=== PATIENT | male | born 1990 | race Caucasian/White ===

== ENCOUNTER 2022-05-24 15:42 | Outpatient (CLI) | payer OTHER, SELFPAY ==
--- NOTE | 2022-05-24 14:30 | USCV_ITS ---
Brandon Rios Age: 31 Gender: M : 1990 Exam Date: 05/24/2022 15:57 Ordering Phys: Danielle Arnold Technologist: CT Exam Location: [facility] – [place]_ Indication: pain - lft le PROCEDURES: Venous duplex imaging was performed in only the left lower extremity. The following venous structures were evaluated: common femoral vein, profunda vein, proximal portion of the greater saphenous vein, superficial femoral vein, and the popliteal vein. In addition, the posterior tibial and peroneal trunk were evaluated. On the left side, the common femoral, superficial femoral, profunda femoral, popliteal, posterior tibial, greater saphenous veins, and the peroneal trunk were identified and interrogated in the standard fashion. These veins were found to be easily compressible with spontaneous blood flow. No evidence of insufficiency or thrombus noted. CONCLUSIONS No evidence of left lower extremity DVT. Jose Zuniga MD (Electronically Signed) Final Date: 25 May 2022 08:48 S
== END 2022-05-24 15:43 | disposition home or self-care (01) ==
LOC: RAD 15:46
PROVIDERS: Family Provider Nurse Practitioner Family; Visit Provider Nurse Practitioner
DX: M25.562 Pain in left knee (principal)
CPT/HCPCS: 93971

== ENCOUNTER 2023-09-30 19:23 | Emergency (ER) | payer OTHER, SELFPAY ==
[2023-09-30 19:26] VITALS: BP 144/91; PULSE 88; RESP 16; TEMP 36.8; O2SAT 99
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
[2023-09-30 21:30] VITALS: BP 141/86; PULSE 88; RESP 16; O2SAT 99
[2023-09-30 22:43] VITALS: BP 151/94; PULSE 90; RESP 16; TEMP 36.8; O2SAT 99
== END 2023-09-30 22:44 | disposition home or self-care (01) ==
PROVIDERS: Emergency Provider General Practice; PCP Family Medicine
DX: S90.512A Abrasion, left ankle, initial encounter (principal); S90.511A Abrasion, right ankle, initial encounter; S80.211A Abrasion, right knee, initial encounter; M79.18 Myalgia, other site; V28.49XA Other motorcycle driver injured in noncollision transport accident in traffic accident, initial encounter
CPT/HCPCS: 70450; 71250; 73590; 73610; 73700; 74176; 99284; E0114

== ENCOUNTER → 2023-10-21 09:32 | Outpatient (BNVA) | payer OTHER, SELFPAY | PROVIDERS: PCP Family Medicine; Visit Provider Podiatrist Foot & Ankle Surgery | DX: M79.672 Pain in left foot (principal); S93.322A Subluxation of tarsometatarsal joint of left foot, initial encounter; W20.8XXA Other cause of strike by thrown, projected or falling object, initial encounter | CPT/HCPCS: 73630; 99203 ==

== ENCOUNTER 2023-10-26 11:23 | Outpatient (CLI) | payer OTHER, SELFPAY ==
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
== END 2023-10-26 11:24 | disposition home or self-care (01) ==
LOC: RAD 11:25
PROVIDERS: PCP Family Medicine; Visit Provider Podiatrist Foot & Ankle Surgery
DX: S93.326A Dislocation of tarsometatarsal joint of unspecified foot, initial encounter (principal); M84.475A Pathological fracture, left foot, initial encounter for fracture; R60.0 Localized edema; S90.32XA Contusion of left foot, initial encounter; Y99.9 Unspecified external cause status
CPT/HCPCS: 73718